=== PATIENT | female | born 1940 | race Asian ===

== ENCOUNTER 2018-01-03 18:50 | Emergency (ER) | payer MEDICARE, BC ==
[2018-01-03] MEDS: KETOROLAC 30 MG INJ IM (20:50)
== END 2018-01-03 20:53 | disposition home or self-care (01) ==
LOC: E/R 18:50
DX: M54.9 Dorsalgia, unspecified (principal); Z79.82 Long term (current) use of aspirin
CPT/HCPCS: 71045; 96372; 99284-25